=== PATIENT | female | born 1995 | race Caucasian/White ===

== ENCOUNTER 2020-04-04 10:16 | Emergency (ER) | payer MEDICAID ==
[~2020-04-04] VITALS: Ht 172.7 cm; Wt 61.0 kg
[2020-04-04 11:41] LABS: BASOPHILS % 0.4 % (0.0-2.0); EOSINOPHILS % 0.8 % (0.0-5.0); HEMATOCRIT. 30.1 % (36.0-48.0); HEMOGLOBIN. 10.1 g/dL (12.0-16.0); LYMPHOCYTES % 21.2 % (20.0-50.0); MEAN CORPUSCULAR HEMOGLOBIN 31.8 pg (28.0-32.0); MEAN CORPUSCULAR VOLUME 94.4 fL (81.0-99.0); MONOCYTES % 6.6 % (2.0-8.0); PLATELET 218 x1000/uL (130-400); RED BLOOD CELL COUNT 3.18 mill/uL (4.2-5.4); RED CELL DISTRIBUTION WIDTH 14.7 % (11.6-14.6)
[2020-04-04 11:47] LABS: CHLORIDE 106 mEq/L (98-107)
[2020-04-04 12:24] LABS: B-HCG QUANTITATIVE 23009 mIU/mL (<3)
[2020-04-04 14:09] VITALS: BP 98/76
== END 2020-04-04 14:10 | disposition home or self-care (01) ==
LOC: ER 10:34
DX: O26.892 Other specified pregnancy related conditions, second trimester (principal); I49.9 Cardiac arrhythmia, unspecified; Z3A.19 19 weeks gestation of pregnancy; Y04.0XXA Assault by unarmed brawl or fight, initial encounter; Y93.89 Activity, other specified; Y92.89 Other specified places as the place of occurrence of the external cause; Y99.8 Other external cause status
CPT/HCPCS: 36415; 76805; 80053; 81025; 84702; 85025; 93005; 99285